=== PATIENT | female | born 1955 ===

== ENCOUNTER 2016-06-14 08:10 | Day surgery (SDC) | payer OTHER ==
[2016-06-14 08:30] VITALS: BMI 23.3
--- NOTE | 2016-06-14 10:22 | CP.SDSHP ---
Same Day Surgery H & P - History Proposed Procedure: EGD Pre-Op Diagnosis: h/o gastric ulcer - Previous Medical/Surgical History Pulmonary: Asthma Previous Surgical History: h/o gastric bypass - Allergies Allergies: Allergies honey Allergy (Verified 10/28/15 15:24) ANAPHYLAXIS venom-honey bee [bee venom (honey bee)] Allergy (Verified 10/28/15 15:24) ANAPHYLAXIS FLU SHOT Allergy (Severe, Uncoded 10/28/15 15:24) BREATHING PROBLEMS - Physical Exam General Appearance: NAD Mental Status: Alert & Oriented x3 Neuro: WNL Heart: WNL Lungs: WNL GI: WNL - {Optional Preform as Required} Abdomen: WNL - Impression Pt. Evaluated Today:Candidate for Anesthesia & Procedure: Yes - Date & Time Date: 06/14/16 Time: 10:22 Short Stay Discharge - Short Stay Discharge Admitting Diagnosis/Reason for Visit: GASTRIC ULCER, UNSP ACUTE OR CHRONIC, W /O HEMOR Disposition: HOME/ ROUTINE
[2016-06-14] MEDS ORDERED: Propofol 10 mg/ml Inj (20 ML) ONE (10:51)
[2016-06-14] MEDS ORDERED: Lactated Ringer's 1,000 ML IV SCH (11:15)
[2016-06-14 16:14] VITALS: O2SAT 100
[2016-06-14 16:19] VITALS: BP 102/61; PULSE 69; RESP 18; TEMP 97.2
== END 2016-06-14 12:00 | disposition home or self-care (01) ==
LOC: C.ENDO 08:10
PROVIDERS: ATTEND Internal Medicine Gastroenterology
DX: Z09 Encounter for follow-up examination after completed treatment for conditions other than malignant neoplasm (principal); Z87.11 Personal history of peptic ulcer disease; Z98.84 Bariatric surgery status
CPT/HCPCS: 43235; J2704; J7120